=== PATIENT | male | born 1960 | race Caucasian/White ===

== ENCOUNTER 2018-05-24 09:35 | Day surgery (SDC) | payer OTHER ==
[2018-05-24] MEDS ORDERED: FENTAnyl 50 MCG/ML VIAL (11:35)
[2018-05-24] MEDS ORDERED: MIDAZOLAM 1 MG/ML 2 ML INJ ×3 (11:36)
== END 2018-05-24 12:16 | disposition home or self-care (01) ==
LOC: GIL 09:35
DX: Z12.11 Encounter for screening for malignant neoplasm of colon (principal); K64.8 Other hemorrhoids
CPT/HCPCS: 45380; 88305